=== PATIENT | male | born 1990 | race Two or more races ===

== ENCOUNTER 2017-10-06 03:51 | Emergency (ER) | payer SELFPAY ==
[2017-10-06] MEDS ORDERED: LIDOCAINE 2% VISCOUS 15 ML UDCUP PO ONE (04:05)
[2017-10-06] MEDS ORDERED: MAG HYDROX/AL HYDROX/SIMETH 30 ML UDCUP PO ONE (04:05)
--- NOTE | 2017-10-06 04:06 | EDPHY ---
H & P Stated Complaint: abd pain, N/D Time Seen by Provider: 10/06/17 04:02 HPI/ROS: Chief Complaint: Abdominal pain HPI: 27-year-old male with a history of gastritis presenting with epigastric abdominal pain since yesterday morning. Patient states that feels like his usual gastritis. He has been getting medicine for mouth Julian but has mom has not sent him any further medication. Has not seen a doctor in you ask for this. Some nausea but no vomiting. Some diarrhea. No blood or dark tarry stools. No fevers or chills. No chest pain shortness of breath. Pain is about a 5/10. There are no aggravating or alleviating factors. ROS: 10 point Review of Systems is negative except as noted in the HPI. PMH: Gastritis Social History: No smoking, occasional alcohol, no recreational drug use Family History: non-contributory Physical Exam: Gen: Awake, Alert, No Distress HEENT: Nose: no rhinorrhea Eyes: PERRLA, EOMI Mouth: Moist mucosa Neck: Supple, no JVD Chest: nontender, lungs clear to auscultation Heart: S1, S2 normal, no murmur Abd: Soft, moderate epigastric tenderness, no right upper quadrant tenderness. No lower abdominal tenderness, no guarding Back: no CVA tenderness, no midline tenderness Ext: no edema, non-tender Skin: no rash Neuro: CN II-XII intact, Sensation grossly intact, Strength 5/5 in bilateral upper and lower extremities - Personal History Current Tetanus/Diphtheria Vaccine: Unsure - Medical/Surgical History Hx Asthma: No Hx Chronic Respiratory Disease: No Hx Diabetes: No Hx Cardiac Disease: No Hx Renal Disease: No Hx Cirrhosis: No Hx Alcoholism: No Hx HIV/AIDS: No Hx Splenectomy or Spleen Trauma: No Other PMH: denies - Social History Smoking Status: Never smoked Constitutional: Initial Vital Signs Temperature (C) 36.8 C 10/06/17 03:53 Heart Rate 87 10/06/17 03:53 Respiratory Rate 20 10/06/17 03:53 Blood Pressure 168/109 H 10/06/17 03:53 O2 Sat (%) 97 10/06/17 03:53 O2 Delivery Mode Room Air Allergies/Adverse Reactions: No Known Allergies Allergy (Unverified 10/06/17 03:56) Home Medications: Medication Instructions Recorded Pantoprazole Sodium [Protonix 40mg 40 mg PO DAILY PRN #30 tab 10/06/17 (*)] Medical Decision Making ED Course/Re-evaluation: Patient has had no relief with GI cocktail. I have ordered IV Protonix and fentanyl. - Data Points Laboratory Results: Laboratory Results 10/06/17 04:10 10/06/17 04:10 10/06/17 10/06/17 04:10 04:10 WBC 8.67 10^3/uL 10^3/uL (3.80-9.50) RBC 5.60 10^6/uL 10^6/uL (4.40-6.38) Hgb 16.8 g/dL g/dL (13.7-17.5) Hct 48.2 % % (40.0-51.0) MCV 86.1 fL fL (81.5-99.8) MCH 30.0 pg pg (27.9-34.1) MCHC 34.9 g/dL g/dL (32.4-36.7) RDW 13.1 % % (11.5-15.2) Plt Count 229 10^3/uL 10^3/uL (150-400) MPV 9.8 fL fL (8.7-11.7) Neut % (Auto) 65.8 % % (39.3-74.2) Lymph % (Auto) 20.5 % % (15.0-45.0) Dundy % (Auto) 12.3 % % (4.5-13.0) Eos % (Auto) 0.7 % % (0.6-7.6) Baso % (Auto) 0.2 % L % (0.3-1.7) Nucleat RBC Rel Count 0.0 % % (0.0-0.2) Absolute Neuts (auto) 5.70 10^3/uL 10^3/uL (1.70-6.50) Absolute Lymphs (auto) 1.78 10^3/uL 10^3/uL (1.00-3.00) Absolute Monos (auto) 1.07 10^3/uL H 10^3/uL (0.30-0.80) Absolute Eos (auto) 0.06 10^3/uL 10^3/uL (0.03-0.40) Absolute Basos (auto) 0.02 10^3/uL 10^3/uL (0.02-0.10) Absolute Nucleated RBC 0.00 10^3/uL 10^3/uL (0-0.01) Immature Gran % 0.5 % % (0.0-1.1) Immature Gran # 0.04 10^3/uL 10^3/uL (0.00-0.10) Sodium 138 mEq/L mEq/L (135-145) Potassium 3.9 mEq/L mEq/L (3.5-5.2) Chloride 103 mEq/L mEq/L (97-110) Carbon Dioxide 20 mEq/l L mEq/l (22-31) Anion Gap 15 mEq/L mEq/L (8-16) BUN 8 mg/dL mg/dL (7-23) Creatinine 0.7 mg/dL mg/dL (0.7-1.3) Estimated GFR > 60 Glucose 123 mg/dL H mg/dL (70-100) Calcium 9.3 mg/dL mg/dL (8.5-10.4) Total Bilirubin 0.7 mg/dL mg/dL (0.1-1.4) AST 35 IU/L IU/L (17-59) ALT 73 IU/L H IU/L (21-72) Alkaline Phosphatase 109 IU/L IU/L (38-126) Total Protein 7.6 g/dL g/dL (6.3-8.2) Albumin 4.5 g/dL g/dL (3.5-5.0) Lipase 75 IU/L IU/L (23-300) Medications Given: Discontinued Medications Al Hydroxide/Mg Hydroxide (Maalox Susp) 30 ml PO ONCE ONE Stop: 10/06/17 04:06 Last Admin: 10/06/17 04:09 Dose: 30 ml Fentanyl (Sublimaze) 50 mcg IVP EDNOW ONE Stop: 10/06/17 04:27 Last Admin: 10/06/17 04:30 Dose: 50 mcg Lidocaine (Lidocaine 2% Viscous) 15 ml PO ONCE ONE Stop: 10/06/17 04:06 Last Admin: 10/06/17 04:09 Dose: 15 ml Pantoprazole Sodium (Protonix) 40 mg IVP EDNOW ONE Stop: 10/06/17 04:27 Last Admin: 10/06/17 04:31 Dose: 40 mg Departure - Departure Disposition: Home, Routine, Self-Care Clinical Impression: Gastritis Condition: Good Instructions: Gastritis (ED) Additional Instructions: You may take the antacid medication daily for your symptoms. Follow up with primary care physician in 3-4 days if symptoms are not improving. Return to the emergency department for worsening abdominal pain, nausea vomiting , dark black bowel movements, weakness, fainting, or any other concerns. Referrals: [facility],. [Clinic] - As per Instructions Prescriptions: Pantoprazole Sodium [Protonix 40mg (*)] 40 mg PO DAILY PRN #30 tab PRN Reason: Pain, Moderate
[2017-10-06 04:19] LABS: PLATELET COUNT 229 10^3/uL (150-400)
[2017-10-06] MEDS ORDERED: PANTOPRAZOLE SODIUM 40 MG VIAL IVP ONE (04:26)
[2017-10-06] MEDS ORDERED: fentaNYL 100 MCG/2 ML INJ IVP ONE ×2 (04:26→05:10)
[2017-10-06 05:54] VITALS: BP 153/97; PULSE 75; RESP 16; TEMP 97.9; O2SAT 95
== END 2017-10-06 05:54 | disposition home or self-care (01) ==
DX: K29.70 Gastritis, unspecified, without bleeding (principal)
CPT/HCPCS: 96374; J3010